=== PATIENT | male | born 1965 | race Caucasian/White ===

== ENCOUNTER 2021-01-01 06:41 | Outpatient (CLI) | payer OTHER, SELFPAY ==
--- NOTE | ~2021-01-01 | CT_ITS ---
EXAMINATION: CT brain wo con DATE: 01/01/2021 07:12 INDICATION: Dizziness. TECHNIQUE: Computed tomography (CT) of the head was performed without intravenous contrast. The mA wa s adjusted according to patient size. Iterative reconstruction technique was employed. The dose-lengt h product was 605.33 mGy-cm. COMPARISON: None FINDINGS: There is no intracranial hemorrhage, acute infarction, or abnormal intracranial mass lesion . The ventricles are normal in size. There is mild mucosal thickening in the paranasal sinuses. The m astoid air cells are normal. IMPRESSION: 1. Normal brain. Reviewed, dictated and finalized at location B. IMPRESSION: 1. Normal brain.
== END 2021-01-01 06:42 | disposition home or self-care (01) ==
PROVIDERS: PCP Family Medicine; Visit Provider Physician Assistant
DX: R42 Dizziness and giddiness (principal)
CPT/HCPCS: 70450

== ENCOUNTER → 2021-08-27 07:14 | Outpatient (CLI) | payer OTHER, SELFPAY ==
[2021-08-27 22:12] LABS: SARS-CoV-2 RNA PCR Negative
== END ==
PROVIDERS: PCP Family Medicine; Visit Provider Physician Assistant
DX: R05.9 Cough, unspecified (principal); R68.89 Other general symptoms and signs; Z20.822 Contact with and (suspected) exposure to COVID-19
CPT/HCPCS: C9803; U0003; U0005

== ENCOUNTER 2022-08-09 08:37 | Outpatient (CLI) | payer OTHER, SELFPAY ==
--- NOTE | ~2022-08-09 | XR_ITS ---
Clinical Indication: Cough PA and lateral views of the chest: Comparison: 05/17/2017 Findings: The lungs are clear, without evidence of focal consolidation or pleural effusion. Cardiome diastinal silhouette is within normal limits. Bones and soft tissues are unremarkable. Impression: Normal chest. Reviewed, dictated and finalized at [facility]. NATAL NURSE Impression: Normal chest.
== END 2022-08-09 08:38 | disposition home or self-care (01) ==
PROVIDERS: PCP Family Medicine; Visit Provider Physician Assistant
DX: R05.9 Cough, unspecified (principal)
CPT/HCPCS: 71046

== ENCOUNTER 2024-10-16 15:45 | Outpatient (CLI) | payer OTHER, SELFPAY ==
--- NOTE | ~2024-10-16 | MR_ITS ---
EXAMINATION: MR brain/brain stem wo/w con DATE: 10/16/2024 16:48 INDICATION: Other symptoms and signs involving the nervous system. Abnormal gait. Unsteadiness. TECHNIQUE: Magnetic resonance imaging (MRI) of the brain and brainstem was performed without and with 20 mL MultiHance intravenous contrast. COMPARISON: Head CT 01/01/2021 FINDINGS: There is no intracranial hemorrhage, acute infarction, or abnormal intracranial mass lesion . The ventricles are normal in size. The orbits are normal. The paranasal sinuses are clear. The mast oid air cells are normal. IMPRESSION: 1. Normal brain. Reviewed, dictated and finalized at location A. ROL ENGINEER IMPRESSION: 1. Normal brain.
--- OUTSIDE RECORDS SUMMARY | 2024-10-16 18:08 | XMS_ITS | Referral Summary ---
Author Organization [facility] Address [address] [place] [address] Care Team Providers Care Director Medical Name Role Phone Jesus Miller MD Primary Care Provider Santiago Jones Unavailable Allergies Active Allergy Reactions Criticality Noted Date Comments Codeine Vomiting Low 02/16/2019 Medications ascorbic acid (VITAMIN C) 500 mg tablet,chewable Take 1 tablet/chew tab (500 mg total) by mouth 2 (two) times a day 60 tablet/chew tab 08/07/20 23 Active cholecalciferol (VITAMIN D-3) 2000 unit capsule Take 1 capsule (2,000 Units total) by mouth daily 30 capsule 08/07/20 23 Active aspirin 81 mg enteric coated tablet Take 1 tablet (81 mg total) by mouth daily for 14 days 14 tablet 08/07/20 23 Active HYDROcodone-acetam inophen (NORCO) 5-325 mg per tabletIndications: Pain Take 1-2 tablets by mouth every 4 (four) hours as needed for pain 15 tablet 08/07/20 23 Active Additional Information Patient not taking.Reported on 01/29/2024 celecoxib (CeleBREX) 200 mg capsule Take 1 capsule (200 mg total) by mouth 2 (two) times a day for 14 days 28 capsule 08/07/20 23 Active escitalopram (LEXAPRO) 5 mg tablet Take 1 tablet (5 mg total) by mouth daily 12/14/19 24 Active meloxicam (MOBIC) 15 mg tabletIndications: Complex tear of medial meniscus of left knee as current injury, initial encounter,Post-tra umatic osteoarthritis of right knee Take 1 tablet (15 mg total) by mouth daily 30 tablet 11 01/29/20 24 025 Active Active Problems Problem Noted Date Diagnosed Date Complex tear of lateral meniscus of right knee 1 09/19/2022 Complex tear of medial meniscus of right knee VICKIE on CPAP 09/24/2021 Bradycardia 09/24/2021 Near syncope 09/24/2021 Mixed hyperlipidemia 09/24/2021 Social History Tobacco Use Types Packs/Day Years Used Date Smoking Tobacco: Never Smokeless Tobacco: Never Tobacco Cessation:Counseling Given: Not Answered AUDIT-C Answer Date Recorded Frequency of Alcohol Consumption Not on file 08/01/2023 Q2: How many drinks containi ng alcohol do you have on a typical day when you are drinking? Patient does not drink Frequency of Binge Drinking Not on file 07/21 Personal Safety Answer Date Recorded Have you ever been in or are you currently in a harmful physical or emotional relationship or is someone making you feel afraid or unsafe? 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 Gender Identity Not on file Sexual Orientation Not on file Last Filed Vital Signs Vital Sign Reading Time Taken Comments Blood Pressure 125/71 01/29/2024 11:03 AM CDT Pulse 50 01/29/2024 11:03 AM CDT Temperature 36.1 C (96.9 F) 08/07/2023 3:53 PM PHYSICAL SCIENCES INSTRUCTOR Respiratory Rate 16 08/07/2023 3:53 PM PHYSICAL SCIENCES INSTRUCTOR Oxygen Saturation 96% 08/07/2023 3:53 PM PHYSICAL SCIENCES INSTRUCTOR Inhaled Oxygen Concentration - - Weight 107.6 kg (237 lb 3.2 oz) 024 11:03 AM CDT Height 175.3 cm (5' 9 ) 01/29/2024 11:0 3 AM CDT Body Mass Index 35.03 01/29/2024 11:03 AM CDT Plan of Treatment Not on file Insurance [facility] CLAIM[facility] Care Teams Director Medical Relationship Specialty Start Date End Date Jesus Miller MD [address] [facility] [address] [place] [address] PCP - General 02/16/19 Santiago Jones PA [address] [place] [address] [address] [place] [address] Orthopedic Surgery 08/07/23
--- OUTSIDE RECORDS SUMMARY | 2024-10-16 18:08 | XMS_ITS | Clinical Summary ---
Author Organization [facility] Address [address] [place] [address] Care Team Providers Care Propulsion Generator Repairer Name Role Phone Jesus Miller MD Primary [...] 09/24/2021 Near syncope 09/24/2021 Mixed hyperlipidemia 09/24/2021 Surgical History Surgery Date Site/Laterality Comments FEMUR SURGERY Right crushed femur KNEE SURGERY Right x 2 FOOT SURGERY Right crushed great toe and 2nd toe Medical History Medical History Date Comments Depression Sleep apnea Syncope Hyperlipidemia Sick sinus syndrome (CMS/HCC) (HCC) Motion sickness Awareness under anesthesia Family History Medical History Relation Name Comments No Known Problems Father No Known Problems Mother Relation Name Status Comments Father Mother Social History Tobacco Use Types Packs/Day Years [...] on file 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 Gender Identity Not on file Sexual Orientation Not on file Obstetrics History Last Filed Vital Signs Vital Sign Reading Time Taken Comments Blood Pressure 125/71 01/29/2024 11:03 AM CDT Pulse 50 01/29/2024 11:03 AM CDT Temperature 36.1 C (96.9 F) 08/07/2023 3:53 PM BEAMER HELPER Respiratory Rate 16 08/07/2023 3:53 PM BEAMER HELPER Oxygen Saturation 96% 08/07/2023 3:53 PM BEAMER HELPER Inhaled Oxygen Concentration - - Weight 107.6 kg (237 lb 3.2 oz) 024 11:03 AM CDT Height 175.3 cm (5' 9 ) 01/29/2024 11:0 3 AM CDT Body Mass Index 35.03 01/29/2024 11:03 AM CDT Plan of Treatment Health Maintenance Due Date Last Done Comments Colon Cancer Screening-Colonoscopy 1965 Depression Screening 1963 Hepatitis C Screening 1963 Prostate Cancer Screening-PSA 1963 DTaP/Tdap/Td Vaccine (1 - Tdap) 1974 Hepatitis B Screening 1981 Regular Well Visit/Exam 18-64 1981 Zoster Vaccine (1 of 2) 2013 Covid-19 Vaccine (3 - 2023-2 5 season) 2024 10/29/2020, 10/01/2020 Influenza Vaccine (#1) 2024 Pneumococcal vaccine <65 Aged Out No longer eligible based on patient's age to complete this topic Insurance [facility] CLAIM[facility] Care Teams Propulsion Generator Repairer Relationship Specialty Start Date End Date Jesus Miller MD [address] [facility] [address] [place] [address] PCP - General 02/16/19 Santiago Jones PA [address] [place] [address] [address] [place] [address] Orthopedic Surgery 08/07/23
--- OUTSIDE RECORDS SUMMARY | 2024-10-16 18:09 | XMS_ITS | Continuity of Care Document ---
Author Name [facility] Organization [facility] Care Team Providers Care Finishing Range Operator Name Role Phone [facility] Unavailable Unavailable Problems Combined list of problems from Department of Defense and Veterans Affairs facilities. It does not include entries that were removed or entered in error. Problem Status Onset Date Problem Type Date of Resolution Comments Source Hearing Loss, Sensorineural, Unspecified Active 008 Condition Unknown Organization Hearing Loss, Sensorineural, Unspecified Active Condition [facility] visit for: ears / hearing exam Inactive Condition [facility] pharyngitis acute Inactive Condition Will treat with amoxicillin in view of clinical sxs and in view of Strep infection going around at this time, final throat culture pending. DoD visit for: postsurgical exam Inactive Condition right knee DoD visit for: administrative purpose Inactive Condition DoD visit for: preoperative orthopedic exam Inactive Condition rt knee scope DoD visit for: occupational health / fitness exam Active Condition DoD knee sprain cruciate ligament posterior Inactive Condition DoD Other Physical Therapy Inactive Condition DoD visit for: screening malignant neoplasm colon Inactive Condition discussed options for colon screening; offered colonoscopy to evaluate colon if pt desires. He is uncertain at this point. DoD joint pain, localized in the knee Active Condition right (probable LMT) DoD skin neoplasm uncertain behavior Active Condition very characteristic of a james ker. Pateint not completely comfortable with dx, with recent skin cancer on father's back. Will biopsy for dx and further treat as indicated. DoD Family history of unspecified malignant neoplasm Active Condition DoD foot sprain right Inactive Condition DoD actinic keratosis Active Condition DoD ankle sprain left Inactive Condition DoD osteoarthritis knee Active Condition DoD Diagnosis: ICD-10-CM G47.33 Obstructive sleep apnea (adult) (pediatric) Active Diagnosis [facility] Medications Combined list of outpatient medications from Department of Defense and Veterans Affairs facilities.Medications provided include 1) outpatient medications from the last 15 months, and 2) patient-reported medications. Medication Details Route Status Patient Instructions Prescription Expires Prescription Number Last Dispense Date Ordering Provider Order Date Order Qty Source CELECOXIB (celecoxib) , 200 MG, CAPSULE, ORAL, [facility], 500 ea. BOTTLE Active [id number] 2023 28 Pharmac y Data Transac tion Service Facilit y ESCITALOPRA M OXALATE (escitalopr am oxalate), 5 MG, TABLET, ORAL, [employer] 90 ea. BOTTLE Active [id number] 4 2023 90 Pharmac y Data Transac tion Service Facilit y ESCITALOPRA M OXALATE (escitalopr am oxalate), 5 MG, TABLET, ORAL, [employer] 90 ea. BOTTLE Active [id number] 4 2023 90 Pharmac y Data Transac tion Service Facilit y HYDROCODONE -ACETAMINOP HEN (hydrocodon e bitartrate/ acetaminoph en), 5 MG-325MG, TABLET, ORAL, MALLINCKROD T PH, 1000 ea. BOTTLE Active [id number] 3 2023 15 Pharmac y Data Transac tion Service Facilit y Meloxicam (Meloxicam) , 15mg, Tablet, Oral, [employer], 1000 Ea. Bottle Active [id number] 4 2023 30 Pharmac y Data Transac tion Service Facilit y Allergies, Adverse Reactions, Alerts Combined list of allergies from Department of Defense and Veterans Affairs facilities. It does not include entries that were removed or entered in error. Substance Category Reaction Severity Reaction type Status Date Reported Comments Source ANALGESIC(O PIOD) [facility] ALL[facility]GIES Drug allergy (disorder) Nausea and Vomiting active 6 [facility] CODEINE Drug allergy (disorder) Unknown active 2 [facility] CODEINE Propensity to adverse reactions to drug (finding) Nausea and vomiting active 6 [facility] codeine Drug allergy Nausea and vomiting (disorder ) Active One or More [facility] Facilities OPERATOR ASSISTANT I CEMENTING Immunizations Combined list of available immunizations from the Department of Defense and Veterans Affairs facilities. Immunization Series Date Given Administered By Site Reaction Lot Number CVX Code Drug Excavator Backhoe Operator Status Comments Source influenza virus vaccine, live, attenuated, for intranasal use 1 2005 HANNAH RACHEL [id number] Desigual. (MED) complet ed influenza virus vaccine, live, attenuate d, for intranasa l use DoD influenza virus vaccine, unspecified formulation 0 2005 [id number] Other (OTH) complet ed influenza virus vaccine, unspecifi ed formulati on DoD influenza virus vaccine, unspecified formulation 0 2004 Unknown, Provider [id number] Desigual. (MED) complet ed influenza virus vaccine, unspecifi ed formulati on DoD influenza virus vaccine, split virus (incl. purified surface antigen)-reti red CODE 1 2002 Unknown, Provider UNKNOWN 15 Unknown (UNK) complet ed influenza virus vaccine, split virus (incl. purified surface antigen)- retired CODE DoD hepatitis B vaccine, adult dosage 3 2002 Unknown, Provider UNKNOWN 43 Unknown (UNK) complet ed hepatitis B vaccine, adult dosage DoD vaccinia (smallpox) vaccine 0 2002 Unknown, Provider [id number] Other (OTH) complet ed vaccinia (smallpox ) vaccine DoD vaccinia (smallpox) vaccine, diluted 1 2002 Unknown, Provider UNKNOWN 105 Unknown (UNK) complet ed vaccinia (smallpox ) vaccine, diluted DoD anthrax vaccine 0 2002 Unknown, Provider [id number] Other (OTH) complet ed anthrax vaccine DoD influenza virus vaccine, unspecified formulation 0 2001 Unknown, Provider UNKNOWN 88 Unknown (UNK) complet ed influenza virus vaccine, unspecifi ed formulati on DoD typhoid vaccine, parenteral, other than acetone-kille d, dried 1 2001 Unknown, Provider UNKNOWN 41 Unknown (UNK) complet ed typhoid vaccine, parentera l, other than acetone-k illed, dried DoD typhoid vaccine, unspecified formulation 1 2001 Unknown, Provider UNKNOWN 91 Unknown (UNK) complet ed typhoid vaccine, unspecifi ed formulati on DoD tetanus and diphtheria toxoids, adsorbed, preservative free, for adult use (2 Lf of tetanus toxoid and 2 Lf of diphtheria toxoid) 1 1999 Unknown, Provider UNKNOWN 09 Unknown (UNK) complet ed tetanus and diphtheri a toxoids, adsorbed, preservat yudith free, for adult use (2 Lf of tetanus toxoid and 2 Lf of diphtheri a toxoid) DoD hepatitis B vaccine, adult dosage 3 1999 Unknown, Provider UNKNOWN 43 Unknown (UNK) complet ed hepatitis B vaccine, adult dosage DoD anthrax vaccine 6 1999 Unknown, Provider [id number] Other (OTH) complet ed anthrax vaccine DoD hepatitis B vaccine, adult dosage 2 1999 Unknown, Provider UNKNOWN 43 Unknown (UNK) complet ed hepatitis B vaccine, adult dosage DoD hepatitis B vaccine, adult dosage 1 1999 Unknown, Provider UNKNOWN 43 Unknown (UNK) complet ed hepatitis B vaccine, adult dosage DoD typhoid vaccine, unspecified formulation 0 1999 Unknown, Provider UNKNOWN 91 Unknown (UNK) complet ed typhoid vaccine, unspecifi ed formulati on DoD anthrax vaccine 5 1999 Unknown, Provider UNKNOWN 24 Unknown (UNK) complet ed anthrax vaccine DoD influenza virus vaccine, unspecified formulation 0 1998 Unknown, Provider UNKNOWN 88 Unknown (UNK) complet ed influenza virus vaccine, unspecifi ed formulati on DoD anthrax vaccine 4 1998 Unknown, Provider UNKNOWN 24 Unknown (UNK) complet ed anthrax vaccine DoD hepatitis A vaccine, adult dosage 2 1998 Unknown, Provider UNKNOWN 52 Unknown (UNK) complet ed hepatitis A vaccine, adult dosage DoD hepatitis A vaccine, adult dosage 2 1998 Unknown, Provider UNKNOWN 52 Unknown (UNK) complet ed hepatitis A vaccine, adult dosage DoD anthrax vaccine 3 1997 Unknown, Provider UNKNOWN 24 Unknown (UNK) complet ed anthrax vaccine DoD anthrax vaccine 2 1997 Unknown, Provider UNKNOWN 24 Unknown (UNK) complet ed anthrax vaccine DoD anthrax vaccine 1 1997 Unknown, Provider UNKNOWN 24 Unknown (UNK) complet ed anthrax vaccine DoD hepatitis A vaccine, adult dosage 1 1997 Unknown, Provider UNKNOWN 52 Unknown (UNK) complet ed hepatitis A vaccine, adult dosage DoD yellow fever vaccine 0 1995 Unknown, Provider UNKNOWN 37 Unknown (UNK) complet ed yellow fever vaccine DoD tetanus and diphtheria toxoids, adsorbed, preservative free, for adult use (2 Lf of tetanus toxoid and 2 Lf of diphtheria toxoid) 0 1989 Unknown, Provider UNKNOWN 09 Unknown (UNK) complet ed tetanus and diphtheri a toxoids, adsorbed, preservat yudith free, for adult use (2 Lf of tetanus toxoid and 2 Lf of diphtheri a toxoid) DoD Vital Signs Combined list of inpatient and outpatient Vital Signs from Department of Defense and Veterans Affairs, ranging from 12 months to all on record, depending upon the facility. Vital Sign Value Date Comments Source Systolic Blood Pressure 120 mm[Hg] 07/23/20 06 22:29:25 One or More A Facilities OPERATOR ASSISTANT I CEMENTING Diastolic Blood Pressure 92 mm[Hg] 07/23/2006 22:29:[address] [facility] Facilities OPERATOR ASSISTANT I CEMENTING Systolic Blood Pressure 128 mm[Hg] 11/09/19 07 15:40:[address] [facility] Facilities OPERATOR ASSISTANT I CEMENTING Diastolic Blood Pressure 73 mm[Hg] 11/08/2006 15:40:[address] [facility] Facilities OPERATOR ASSISTANT I CEMENTING Encounters Combined list of: 1) Encounters from Department of Veterans Affairs facilities going backup to the last 18 months, not all [place] inpatient encounters are included; 2) Encounters from the Department of [facility] facilities going backup to 280 months. Location Location Details Encounter Type Encounter Number Reason For Visit Attending Provider ADM Date DC Date Status Disposition Source [facility] Sick Call) OUTPATIENT [id number] r knee pain x 2 weeks RHINA KHALIL 09/13 Released w/o Limitations [facility](De rmatology Clinic [facility]) OUTPATIENT [id number] ACTINIC KERATOS IS ADA NORMAN 09/19 Released w/o Limitations [facility]( Dermato logy Clinic [facility]) [facility](Or thopedic Clinic [facility]) OUTPATIENT [id number] ACTINIC KERATOS IS DORINDA EVERETT 09/20 Released w/o Limitations [facility]( Orthope dic Clinic [facility]) [facility](Ge neral Surgery Clinic [facility]) OUTPATIENT [id number] for screeni ng sundeep copy TALI GHOSH 09/29 Released w/o Limitations [facility]( General Surgery Clinic [facility]) [facility](Ph ysical Therapy Clinic [facility]) OUTPATIENT [id number] rt knee PCL tear; menisca l tear INGRID LOPEZ 10/02 Released with Work/Duty Limitations [facility]( Physica l Therapy Clinic [facility]) [facility] Sick Call) OUTPATIENT [id number] answere d yes to LOLIS HOOPER ZUHAIR J 10/17 Released w/o Limitations [facility]( Staff Militar y Sick Call) [facility] [place](Or thopedic [facility]) OUTPATIENT [id number] DORINDA EVERETT 10/26 Released with Work/Duty Limitations [facility] [place]( Orthope dic Clinic [facility]) [facility](Or thopedic [facility]) OUTPATIENT [id number] DORINDA EVERETT 11/08 Released w/o Limitations [facility]( Orthope dic Clinic [facility]) [facility](Or thopedic [facility]) TELE CONSULT [id number] Dr. Everett PT needs med change DORINDA EVERETT 11/20 [facility]( Orthope dic Clinic [facility]) [facility] [place](Or thopedic [facility]) OUTPATIENT [id number] DORINDA EVERETT 12/04 Released with Work/Duty Limitations [facility] [place]( Orthope dic Clinic [facility]) [facility](Or thopedic [facility]) OUTPATIENT [id number] DORINDA EVERETT 12/20 Released w/o Limitations [facility] [place]( Orthope dic Clinic [facility]) [facility] Sick Call) OUTPATIENT [id number] sore throat x 3days RHINA KHALIL 12/22 Released w/o Limitations [facility]( Staff [facility]ilitar y Sick Call) [facility]) OUTPATIENT [id number] CHAZ Conklin 01/05 Released w/o Limitations [facility]( [facility]) [facility](Or [facility]) OUTPATIENT [id number] rt knee DORINDA EVERETT 01/10 Released w/o Limitations [facility]( Orthope dic Clinic [facility]) [facility](Or [facility]) OUTPATIENT [id number] DORINDA EVERETT 04/03 Released w/o Limitations [facility]( Orthope dic Clinic [facility]) [facility](Oc cupation[place] l [place] [address]) OUTPATIENT [id number] Pre-Emp Water Surv Inst/Tr nr KATHY ERIC R 07/30 Released w/o Limitations [facility]( Occupat ional Health [place] [address]) [facility](He aring Conservat ion [facility]) OUTPATIENT [id number] non HCP audiogr am PERRY CROCKETT 07/30 Released w/o Limitations [facility]( Hearing Conserv ation Clinic) [facility] Outpatient Encounter [id number] 9 02/16 [facility] SELF-MGMT EDUC & [place] 1 [place] [id number] Diagnos is: ICD-10- CM G47.33 Obstruc tive sleep apnea (adult) ([facility]) TOBIAS MCINTYRE 03/13 [facility] Procedures Combined list of: 1) Procedures from Department of Veterans Affairs facilities going back up to thelast 18 months, not all [facility] non-surgical procedures are included; 2) All procedures from the Department of Defense facilities. Procedure Procedure Type Code Date Perfomer Comments Sourc e ARTHROSCOPY, KNEE, SURGICAL; DEBRIDEMENT/SHAVING OF ARTICULAR CARTILAGE (CHONDROPLASTY) Arthroscopy, knee, surgical; debridement/shavin g of articular cartilage (chondroplasty) 03273 7 Ambulatory Pharmacy ARTHROSCOPY, KNEE, SURGICAL; WITH MENISCECTOMY (MEDIAL OR LATERAL, INCLUDING ANY MENISCAL SHAVING) INCLUDING DEBRIDEMENT/SHAVING OF ARTICULAR CARTILAGE (CHONDROPLASTY), SAME OR SEPARATE COMPARTMENT(S), WHEN PERFORMED Arthroscopy, knee, surgical; with meniscectomy (medial OR lateral, including any meniscal shaving) [id number] 7 Ambulatory Pharmacy PURE TONE AUDIOMETRY (THRESHOLD); AIR ONLY 7 DoD POSTOPERATIVE FOLLOW-UP VISIT, NORMALLY INCLUDED IN THE SURGICAL PACKAGE, INDICATE THAT EVALUATION & MANAGEMENT SERVICE WAS PERFORMED DURING A POSTOPERATIVE PERIOD REASON RELATED ORIGINAL PROCEDURE 7 DoD SCREENING TEST, PURE TONE, AIR ONLY 7 DoD POSTOPERATIVE FOLLOW-UP VISIT, NORMALLY INCLUDED IN THE SURGICAL PACKAGE, INDICATE THAT EVALUATION & MANAGEMENT SERVICE WAS PERFORMED DURING A POSTOPERATIVE PERIOD REASON RELATED ORIGINAL PROCEDURE 7 DoD POSTOPERATIVE FOLLOW-UP VISIT, NORMALLY INCLUDED IN THE SURGICAL PACKAGE, INDICATE THAT EVALUATION & MANAGEMENT SERVICE WAS PERFORMED DURING A POSTOPERATIVE PERIOD REASON RELATED ORIGINAL PROCEDURE 7 [facility] UNLISTED SPECIAL SERVICE, PROCEDURE OR REPORT 7 [facility] THERAPEUTIC ACTIVITIES, DIRECT (ONE-ON-ONE) PATIENT CONTACT (USE OF DYNAMIC ACTIVITIES TO IMPROVE FUNCTIONAL PERFORMANCE), EACH 15 MINUTES 7 DoD BIOPSY OF SKIN, SUBCUTANEOUS TISSUE AND/OR MUCOUS MEMBRANE (INCLUDING SIMPLE CLOSURE), UNLESS OTHERWISE LISTED; SINGLE LESION 7 DoD INFLUENZA VIRUS VACCINE, TRIVALENT, LIVE (LAIV3), FOR INTRANASAL USE 5 DoD PRESCRIPTION DRUG, BRAND NAME 5 DoD CHIROPRACTIC MANIPULATIVE TREATMENT (CMT); SPINAL, 3-4 REGIONS 5 DoD CHIROPRACTIC MANIPULATIVE TREATMENT (CMT); SPINAL, 3-4 REGIONS 5 DoD CHIROPRACTIC MANIPULATIVE TREATMENT (CMT); SPINAL, 3-4 REGIONS 5 DoD CHIROPRACTIC MANIPULATIVE TREATMENT (CMT); SPINAL, 3-4 REGIONS 5 DoD PRESCRIPTION DRUG, ORAL, NONCHEMOTHERAPEUTIC , NOT OTHERWISE SPECIFIED 5 DoD PATIENT EDUCATION, NOT OTHERWISE CLASSIFIED, NON-PHYSICIAN PROVIDER, INDIVIDUAL, PER SESSION 5 DoD ORAL THERMOMETER, REUSABLE, ANY TYPE, EACH 4 DoD PHARMACOLOGIC MANAGEMENT, INCLUDING PRESCRIPTION, USE, AND REVIEW OF MEDICATION WITH NO MORE THAN MINIMAL MEDICAL PSYCHOTHERAPY 4 DoD EAR PROTECTOR ATTENUATION MEASUREMENTS 3 DoD REMOVAL OF FOREIGN BODY, EXTERNAL EYE; CORNEAL, WITH SLIT LAMP 2 [facility] DETERMINATION OF REFRACTIVE STATE 2 DoD PHYS/OTH QUALIFIED HEALTH JANITORIAL MAINTENANCE WORKER QUALIFIED,EDUCATION ,TRAIN,LICENSURE/RE GULATION (WHEN APPLICABLE) EDUC SER RENDERED TO PATS IN A GRP SETTING (EG,,OBESIT Y,OR DIABETIC INSTRUCT) 1 DoD Social History Combined list of available smoking, tobacco, and other social history from Department of Defense and Veterans Affairs facilities. Social History Type Response Date Comment Sourc e Sex Representation Male 09/11/2023 Unknow n Organization Sexual Orientation Amb[facility]ory Pharmacy Gender identity Ambulator y Pharmacy This section is an empty soc ial history section. DoD Assessment and Plan Combined list of future care activities from Department of Defense and Veterans Affairs facilities (e.g., assessment and plan notes, appointments, orders, and referrals). Additional future care activities may be listed in the Plan of Care section. Result Assessment and Plan Date Source Assessment and Plan No data available for this section 10/17/2024 Ambulatory Pharmacy Functional Status Combined list of recent functional and cognitive assessments recorded at Department of Defense and Veterans Affairs (VA).VA Functional O'Brien Measurement (FIM) Scale: 1 = Total Assistance (Subject = 0% +), 2 = Maximal Assistance (Subject = 25% +), 3 = Moderate Assistance (Subject = 50% +), 4 = Minimal Assistance (Subject = 75% +), 5 = Supervision, 6 = Modified O'Brien (Device), 7 = Complete O'Brien (Timely, Safely). Assessment Date/Time Source Assessment Type Assessment Skill Assessment Score Assessment Details No data available for this section
--- OUTSIDE RECORDS SUMMARY | 2024-10-16 18:09 | XMS_ITS | Patient Health Record ---
Author Organization Pending sale to [facility] Address [address] [place] [address] Care Team Providers Care Ballpoint Pens Assembler Name Role Phone Shreyas Cerda Primary Care Provider Reason For Referral No Information Immunizations Vaccine Route Administration Date Status Comme nts COVID-19 Moderna 2nd IM Intramuscular 10/29/2020 Administered EUA given. Marie ent tolerated well. COVID-19 Moderna 1ST IM Intramuscular 10/01/2020 Administered EUA date 0. Screening reviewed and consent signed. Patient tolerated well. Plan Of Treatment No Information
--- OUTSIDE RECORDS SUMMARY | 2024-10-16 18:09 | XMS_ITS | CONTINUITY OF CARE DOCUMENT ---
Author Name logan ford Address Unknown Organization [facility] Address [address] [place] [address] Phone [phone] Care Team Providers Care Direct Response Consultant Name Role Phone Chad Royal MD Unavailable [phone] Chad Royal MD Unavailable INSURANCE PROVIDERS Payer name Policy type / Coverage type [employer] [id number] PAY
== END 2024-10-16 15:46 | disposition home or self-care (01) ==
PROVIDERS: PCP Family Medicine; Visit Provider Physician Assistant
DX: R29.818 Other symptoms and signs involving the nervous system (principal); R26.81 Unsteadiness on feet; R26.89 Other abnormalities of gait and mobility
CPT/HCPCS: 70553; A9577

== ENCOUNTER 2025-05-08 14:09 | Outpatient (CLI) | payer OTHER, SELFPAY ==
--- OUTSIDE RECORDS SUMMARY | 2025-05-08 14:15 | XMS_ITS | Clinical Summary ---
Author Organization [facility] Address [address] [place] [address] Care Team Providers Care District Gauger Name Role Phone Jesus Miller MD Primary Care Provider Santiago Jones Unavailable Allergies Active Allergy Reactions Criticality Noted Date Comments Codeine Vomiting Low 02/16/2019 Medications ascorbic acid (VITAMIN C) 500 mg tablet,chewable Take 1 tablet/chew tab (500 mg total) by mouth 2 (two) times a day 60 tablet/chew tab 08/07/20 Active Additional Information Patient not taking.Reported on 03/30/2025 cholecalciferol (VITAMIN D-3) 2000 unit capsule Take 1 capsule (2,000 Units total) by mouth daily 30 capsule 08/07/20 Active Additional Information Patient not taking.Reported on 03/30/2025 aspirin 81 mg enteric coated tablet Take 1 tablet (81 mg total) by mouth daily for 14 days 14 tablet 08/07/20 Active Additional Information Patient not taking.Reported on 03/30/2025 HYDROcodone-acetam inophen (NORCO) 5-325 mg per tabletIndications: Pain Take 1-2 tablets by mouth every 4 (four) hours as needed for pain 15 tablet 08/07/20 Active Additional Information Patient not taking.Reported on 03/30/2025 celecoxib (CeleBREX) 200 mg capsule Take 1 capsule (200 mg total) by mouth 2 (two) times a day for 14 days 28 capsule 08/07/20 Active Additional Information Patient not taking.Reported on 03/30/2025 escitalopram (LEXAPRO) 5 mg tablet Take 1 tablet (5 mg total) by mouth daily 12/14/19 24 Active meloxicam (MOBIC) 15 mg tabletIndications: Complex tear of medial meniscus of left knee as current injury, initial encounter,Post-tra umatic osteoarthritis of right knee Take 1 tablet (15 mg total) by mouth daily 30 tablet 11 01/29/20 24 Active Additional Information Patient not taking.Reported on 03/30/2025 benzonatate (TESSALON) 100 mg capsuleIndications :Cough Take 2 capsules (200 mg total) by mouth 3 (three) times a day as needed for cough 42 capsule 03/30/20 25 Active Active Problems Problem Noted Date Diagnosed Date Complex tear of lateral meniscus of right knee 1 09/19/2022 Complex tear of medial meniscus of right knee VICKIE on CPAP 09/24/2021 Bradycardia 09/24/2021 Near syncope 09/24/2021 Mixed hyperlipidemia 09/24/2021 Encounters Date Type Department Care Team Description 03/30/2025 12:45 PM CDT Office Visit [facility] at [address] [phone] Montserrat Obando NP Sore throat (Primary Dx); Bronchitis from Last 3 Months Surgical History Surgery Date Site/Laterality Comments FEMUR SURGERY Right crushed femur KNEE SURGERY Right x 2 FOOT SURGERY Right crushed great toe and 2nd toe Medical History Medical History Date Comments Depression Sleep apnea Syncope Hyperlipidemia Sick sinus syndrome (HCC) Motion sickness Awareness under anesthesia Family [...] on file 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 Gender Identity Not on file Sexual Orientation Not on file Obstetrics History Last Filed Vital Signs Vital Sign Reading Time Taken Comments Blood Pressure 112/64 03/30/2025 12:32 PM CDT Pulse 59 03/30/2025 12:32 PM CDT Temperature 37 C (98.6 F) 03/30/2025 12:32 PM CDT Respiratory Rate 20 03/30/2025 12:32 PM CDT Oxygen Saturation 97% 03/30/2025 12:32 PM CDT Inhaled Oxygen Concentration - - Weight 99.8 kg (220 lb) 03/30/2025 12:32 PM CDT Height 180.3 cm (5' 11) 03/30/2025 12:32 PM CDT Body Mass Index 30.68 03/30/2025 12:32 PM CDT Plan of Treatment Health Maintenance Due Date Last Done Comments Colon Cancer Screening-Colonoscopy 1965 Depression Screening 1963 Hepatitis C Screening 1963 Prostate Cancer Screening-PSA 1963 DTaP/Tdap/Td Vaccine (1 - Tdap) 1974 Hepatitis B Screening 1981 Regular Well Visit/Exam 18-64 1981 Zoster Vaccine (1 of 2) 2013 Covid-19 Vaccine (3 - 2024-2 6 season) 2025 10/29/2020, 10/01/2020 Influenza Vaccine (#1) 2025 Pneumococcal vaccine <65 Aged Out No longer eligible based on patient's age to complete this topic Insurance [employer] Member Subscriber Plan / Payer (Ef fective 2024-Present) Name:Jarrett Vuong Relation to Subscriber:Self Name:Jarrett Vuong Payer ID:[id number] (NAIC) Group ID:Not on file Type:[employer] Address: [facility] [place] [phone] [facility] CLAIM[facility] Care Teams District Gauger Relationship Specialty Start Date End Date Jesus Miller MD [address] [facility] [address] [place] [address] PCP - General 02/16/19 Santiago Jones PA [address] [place] [address] [address] [place] [address] Orthopedic Surgery 08/07/23
--- OUTSIDE RECORDS SUMMARY | 2025-05-08 14:15 | XMS_ITS | Clinical Summary ---
Author Organization [facility] Address [address] [place] [address] Care Team Providers Care Orchid Superintendent Name Role Phone Unavailable Primary Care Provider Unavailabl e Source Comments This disclosure is being made pursuant to the [employer] program and maynot contain all information available regarding this patient.[facility] Social History Tobacco Use Types Packs/Day Years Used Date Smoking Tobacco: Never Assessed Sex and Gender Information Value Date Recorded Sex Assigned at Not on file Legal Sex Male 5:15 PM [employer] Gender Identity Not on file Sexual Orientation Not on file Plan of Treatment Health Maintenance Due Date Last Done Comments CT Colonography 1963 Colonoscopy 1963 Colorectal Cancer Screening 1963 Fecal DNA Test 1963 Lab-Cholesterol Screening 1963 Lab-Hepatitis C Screening 1963 Sigmoidoscopy 1963 Annual Wellness Visit 1981 Tetanus/Pertussis Vaccine Teen/Adult (1 - Tdap) 1982 FOBT/FIT 1983 Pneumococcal Vaccines 50+ (1 of 1 - PCV) 2013 Zoster (Shingles) Vaccine 50 + (1 of 2) 2013 COVID-19 Vaccine ( - 2023-2 5 season) 2025 Influenza Vaccine (#1) 2025 RSV Adult (1 - 1-dose 75+ series) 2038 HIB Vaccine Aged Out No longer eligi ble based on patient's age to complete this topic HPV Vaccine (9-26yo & Shared Decision 27-45yo) Aged Out No longer eligible b ased on patient's age to complete this topic Hepatitis A Vaccine Aged Out No longe r eligible based on patient's age to complete this topic IPV Vaccine Aged Out No longer eligi ble based on patient's age to complete this topic Meningococcal Conjugate Vaccine Aged Out No longer eligible based on patient's age to complete this topic RSV < 20 Months Aged Out No longer el igible based on patient's age to complete this topic
--- NOTE | 2025-05-08 16:56 | WPDPFTINT ---
PFT Procedure Performed PFT Procedure Performed Spirometry with Pre/Post Bronchodilator Plethysmography (Lung Vol) Diffusing Cap (DLCO) Flow Vol Loop PFT Interpretation This is a pulmonary function test with pre and post-bronchodilator spirometry, plethysmography and diffusing capacity. The test was performed and results interpreted in accordance with the 2019 and 2005 ATS/ERS Task Force guidelines respectively using the Global Lung Function Initiative-2012 reference equations. Patient demonstrated good effort and cooperation. Reproducibility criteria were met. The quality of the pre bronchodilator spirometry maneuver was Grade B and post bronchodilator spirometry maneuver was Grade B. Findings: Spirometry: The contour the inspiratory and expiratory flow tracing are normal. The pre bronchodilator FVC is 4.27 L, 90% predicted. The pre bronchodilator FEV1 is 3.23 L, 88% predicted. The pre bronchodilator FEV1: FVC ratio 76%. The post bronchodilator FVC is 4.26 L, representing no change. The post bronchodilator FEV1 is 3.46 L, representing a 7% increase. The post bronchodilator FEV1: FVC ratio is 81%. Plethysmography: The total lung capacity 7.27 L, 101% predicted. The functional residual capacity is 2.92 L, 78% predicted. The residual volume is 2.86 L, 124% predicted. Diffusing capacity: The diffusing capacity unadjusted for hemoglobin and carboxyhemoglobin is 23.4, 82% predicted. The diffusing capacity adjusted for alveolar volume is 3.95, 95% predicted. Impression: The spirometry is normal without evidence of an obstructive abnormality. There is no significant improvement after inhaling a single dose of albuterol. The lung volumes are normal. The diffusing capacity is normal. There are no prior studies for comparison
== END 2025-05-08 14:10 | disposition home or self-care (01) ==
PROVIDERS: PCP Family Medicine; Visit Provider Physician Assistant Medical
DX: R05.3 Chronic cough (principal); R06.02 Shortness of breath; R06.2 Wheezing
CPT/HCPCS: 94060; 94375; 94726; 94729

== ENCOUNTER 2025-05-16 11:01 | Outpatient (CLI) | payer OTHER, SELFPAY ==
--- NOTE | ~2025-05-16 | XR_ITS ---
Examination: XR chest 2V Clinical History: R05.9 - Cough, unspecified Comparison: X-rays 08/09/2022 Technique: PA and Lateral Findings: Cardiomediastinal silhouette normal size and configuration. Lungs clear. No acute bony abnormality. IMPRESSION: 1. No acute cardiopulmonary findings. Reviewed, dictated and finalized at location R.
== END 2025-05-16 11:02 | disposition home or self-care (01) ==
LOC: MICIMG 11:02
PROVIDERS: PCP Family Medicine; Visit Provider Physician Assistant Medical
DX: R05.9 Cough, unspecified (principal); R06.02 Shortness of breath
CPT/HCPCS: 71046